=== PATIENT | female | born 1940 | race Caucasian/White ===

== ENCOUNTER 2021-08-30 06:03 | Inpatient (IN) ==
[2021-08-30] MEDS ORDERED: Aspirin 81 MG TAB.CHEW PO ONE (06:34)
[2021-08-30] MEDS ORDERED: *HR* FentaNYL (PF) 100 MCG/2 ML VIAL IVP ONE (06:41)
[2021-08-30 06:46] LABS: Basophils % 0.2 %; Eosinophils % 0.4 %; Hematocrit 38.6 % (35.3-44.9); Hemoglobin 13.1 g/dL (11.5-15.4); Immature Granulocytes % 0.5 % (0-4); Lymphocytes # 2.6 K/mcL (0.6-4.6); Lymphocytes % 23.7 %; Mean Corpuscular HGB Conc 33.9 g/dL (31.6-35.5); Mean Corpuscular Hemoglobin 30.3 pg (28.0-33.3); Mean Corpuscular Volume 89.4 fL (83.0-100.0); Monocytes # 0.7 K/mcL (0.0-1.3); Monocytes % 6.1 %; Neutrophils # 7.5 K/mcL (1.6-8.9); Platelet Count 251 K/mcL (140-400); Red Blood Count 4.32 M/mcL (3.82-4.97); Red Cell Distribution Width 13.5 % (11.5-14.5); Segmented Neutrophils % 69.1 %; White Blood Count 10.8 K/mcL (4.3-11.1)
[2021-08-30] MEDS ORDERED: *HR* Heparin 5,000 UNIT/ML VIAL IVP PRN ×2 (06:47)
[2021-08-30] MEDS ORDERED: *HR* Heparin 5,000 UNIT/ML VIAL IVP ONE (06:47)
[2021-08-30 06:53] LABS: INR 1.1
[2021-08-30] MEDS: Heparin 25,000UNIT/250ML 1/2NS 25,000 UNIT/250 ML IV.SOLN IVC SCH (06:59)
[2021-08-30] MEDS ORDERED: *HR* Midazolam HCl 2 MG/2 ML VIAL ONE (07:04)
[2021-08-30] MEDS ORDERED: *HR* FentaNYL (PF) 100 MCG/2 ML VIAL ONE (07:04)
[2021-08-30] MEDS ORDERED: *HR* Heparin 10,000 UNIT/10 ML VIAL ONE (07:05)
[2021-08-30] MEDS ORDERED: Nitroglycerin 1,000 MCG/5 ML VIAL IV ONE (07:05)
[2021-08-30] MEDS ORDERED: ISOVUE-370 200 ML INFUS..BTL ONE ×2 (07:05→08:02)
[2021-08-30] MEDS ORDERED: 0.9 % Sodium Chloride 2,000 ML ONE (07:05)
[2021-08-30] MEDS ORDERED: Heparin 1,000 UNITS/500 mL 500 ML ONE (07:05)
[2021-08-30 07:09] LABS: Calcium 9.4 mg/dL (8.6-10.3); Potassium 4.1 mEq/L (3.5-5.1); Troponin I 7.93 ng/mL (< 0.04)
[2021-08-30] MEDS ORDERED: *HR* Ticagrelor 90 MG TABLET ONE (07:17)
[2021-08-30] MEDS ORDERED: Tirofiban 12.5 MG/250ML 12.5 MG/250 ML BAG ONE (07:32)
[2021-08-30] MEDS ORDERED: Ondansetron 4 MG/2 ML VIAL ONE (08:15)
[2021-08-30] MEDS ORDERED: Perflutren Lipid Microsphere 1.3 ML in 0.9 % Sodium Chloride 8.7 ML IVP PRN (08:29)
[2021-08-30] MEDS ORDERED: Naloxone 0.4 MG/ML INJ IVP PRN (08:29)
[2021-08-30] MEDS: 0.9 % Sodium Chloride 1,000 ML IVC SCH ×3 (08:45→19:36)
[2021-08-30] MEDS: Metoprolol XL (24 HR) Succ 25 MG TAB.ER.24H PO SCH ×2 (09:02→09:15)
[2021-08-30] MEDS ORDERED: Mag Hydrox/Al Hydrox/Simeth 30 ML UDC PO PRN (09:44)
[2021-08-30] MEDS: *HR* Ticagrelor 90 MG TABLET PO SCH (19:36)
[2021-08-31] MEDS: 0.9 % Sodium Chloride 1,000 ML IVC SCH ×2 (02:17→09:30)
[2021-08-31 07:42] LABS: Basophils % 0.2 %; Eosinophils # 0.1 K/mcL (0.0-0.6); Eosinophils % 1.5 %; Hematocrit 34.8 % (35.3-44.9); Immature Granulocytes % 0.3 % (0-4); Lymphocytes # 2.5 K/mcL (0.6-4.6); Lymphocytes % 29.6 %; Mean Corpuscular HGB Conc 32.2 g/dL (31.6-35.5); Mean Corpuscular Hemoglobin 29.9 pg (28.0-33.3); Mean Platelet Volume 10.3 fL (9.4-12.4); Monocytes # 0.7 K/mcL (0.0-1.3); Monocytes % 8.6 %; Neutrophils # 5.1 K/mcL (1.6-8.9); Platelet Count 204 K/mcL (140-400); Red Blood Count 3.74 M/mcL (3.82-4.97); Red Cell Distribution Width 14.1 % (11.5-14.5); Segmented Neutrophils % 59.8 %; White Blood Count 8.6 K/mcL (4.3-11.1)
[2021-08-31 07:43] LABS: Hemoglobin 11.2 g/dL (11.5-15.4)
[2021-08-31] MEDS: *HR* Ticagrelor 90 MG TABLET PO SCH ×2 (08:14→20:32)
[2021-08-31] MEDS: Aspirin 81 MG TAB.CHEW PO SCH (08:14)
[2021-08-31] MEDS: Metoprolol XL (24 HR) Succ 25 MG TAB.ER.24H PO SCH (08:14)
[2021-08-31 10:11] LABS: Calcium 8.3 mg/dL (8.6-10.3); Carbon Dioxide 21 mEq/L (23-29); Chloride 111 mEq/L (98-107); Glucose 93 mg/dL (70-105); Potassium 4.1 mEq/L (3.5-5.1); Sodium 139 mEq/L (136-145); eGFR For African Americans > 60 (> 60); eGFR For Non-African Americans 58 (> 60)
[2021-08-31 10:49] LABS: BUN/Creatinine Ratio 20 (6-26); Blood Urea Nitrogen 19 mg/dL (8-23); Osmolality,Calculated 290 (280-300)
[2021-08-31] MEDS: Heparin 25,000UNIT/250ML 1/2NS 25,000 UNIT/250 ML IV.SOLN IVC SCH (14:53)
[2021-08-31] MEDS ORDERED: Ibuprofen 400 MG TABLET PO PRN (21:35)
[2021-08-31] MEDS ORDERED: *HR* HYDROcodone/Acet 5/325 mg TABLET PO PRN (21:35)
[2021-09-01 03:09] VITALS: O2SAT 96
[2021-09-01 07:11] VITALS: BP 114/63; PULSE 80; TEMP 98
[2021-09-01] MEDS: Aspirin 81 MG TAB.CHEW PO SCH (09:34)
[2021-09-01] MEDS: Metoprolol XL (24 HR) Succ 25 MG TAB.ER.24H PO SCH (09:34)
== END 2021-09-01 11:00 | disposition home or self-care (01) | DRG 247 ==
LOC: 2NNU 06:03 → EMEROOARM 06:03 → 2NNU 07:10
PROVIDERS: ADMIT Internal Medicine; ATTEND Internal Medicine